=== PATIENT | male | born 1990 | race African-American/Black ===

== ENCOUNTER 2017-11-24 14:59 | Emergency (ER) | payer MEDICAID ==
[~2017-11-24] VITALS: Ht 182.9 cm; Wt 81.7 kg
[~2017-11-24 14:59] MED LIST: CRUTCH1 EACH; NAPROXEN500 MG PO
== END 2017-11-24 15:37 | disposition home or self-care (01) ==
LOC: ED 14:59
DX: R11.2 Nausea with vomiting, unspecified (principal); R19.7 Diarrhea, unspecified